=== PATIENT | female | born 2000 | race Caucasian/White ===

== ENCOUNTER 2025-04-13 10:57 | Outpatient (OUT) | payer BC, SELFPAY ==
--- OUTSIDE RECORDS SUMMARY | 2025-03-30 11:50 | XMS_ITS | Encounter Summary ---
Author Organization [facility] Address [address] [place] [address] Care Team Providers Care Multimedia Journalist Name Role Phone Maco Burch MD Primary Care Provider [phone] Reason for Visit * Reason Comments Pre-op Visit Encounter Details Date Type Department Care Team (Late st Contact Info) Description 03/30/2025 11:50 AM EDT Consult [facility] [address] [place] [address] Chas Duckworth DO [address] [place] [address] Pre-op examination; Dysmenorrhea; Pelvic pain in female Social History Tobacco Use Types Packs/Day Years Used Date Smoking Tobacco: Never Smokeless Tobacco: Never Alcohol Use Standard Drinks/Week Comments Yes 2 (1 standard drink = 0.6 oz pur e alcohol) Monthly AUDIT-C Answer Date Recorded Q1: How often do you have a drink containing alc ohol? Never 11/21/2024 Q2: How many drinks containi ng alcohol do you have on a typical day when you are drinking? 1 or 2 11/21/2024 Q3: How often do you have six or more drinks on one occasion? Never 11/21/2024 PHQ-2 Answer Date Recorded Patient Health Questionnaire-2 Score 0 11/21/2024 Comments No Sex and Gender Information Value Date Recorded Sex Assigned at Not on file Legal Sex Female 7:24 PM EDT Gender Identity Not on file Sexual Orientation Not on file documented as of this encounter Last Filed Vital Signs Vital Sign Reading Time Taken Comments Blood Pressure 100/66 03/30/2025 11:56 AM EDT Pulse - - Temperature - - Respiratory Rate - - Oxygen Saturation - - Inhaled Oxygen Concentration - - Weight 72.3 kg (159 lb 8 oz) 03/30/2025 11:56 AM EDT Height - - Body Mass Index 32.22 12/04/2022 12:00 PM EST documented in this encounter Progress Notes * Fide Marcos, STAFF RADIOGRAPHER - 03/30/2025 11:50 AM EDT Reason for Appointment: Patient ID: Capri Roper is a 24 y.o. female who presents for Pre-op Visit Patient presents today for Pre Op appointment. Patient is scheduled to undergo Diagnostic Laparoscopy, possible KING, possible FOE, possible BSO on 04/28/[address] Duckworth at [facility]. MEDICATIONS Current Outpatient Medications Medication Instructions naproxen (Naprosyn) 500 MG tablet Every 24 hours norethindrone-ethinyl estradiol-ferrous fumarate (Blisovi 24 Fe) 1-20 MG-MCG(24) tablet 1 tablet, Daily spironolactone (ALDACTONE) 50 mg, Oral, Daily ALLERGIES Allergies Allergen Reactions Latex Rash PROBLEMS Active Ambulatory Problems Diagnosis Date Noted No Active Ambulatory Problems Resolved Ambulatory Problems Diagnosis Date Noted No Resolved Ambulatory Problems Past Medical History: Diagnosis Date Irregular menses 5 months ago Other general symptoms and signs Toxic shock (CMS/HCC) HISTORY PAST MEDICAL HISTORY SOCIAL HISTORY Past Medical History: Diagnosis Date Irregular menses 5 months ago Other general symptoms and signs inflammation of chest and back Toxic shock (CMS/HCC) Social History Tobacco Use Smoking status: Never Smokeless tobacco: Never Vaping Use Vaping status: Never Used Substance Use Topics Alcohol use: Yes Alcohol/week: 2.0 standard drinks of alcohol Types: 2 Standard drinks or equivalent per week Comment: Monthly Drug use: Never FAMILY HISTORY Family History Problem Relation Name Age of Onset Migraines Mother Fide Heart disease Father Father's mother lavon Diabetes Father Father's mother lavon Cancer Maternal Grandmother Pat Cancer Paternal Grandfather [place] SURGICAL HISTORY Past Surgical History: Procedure Laterality Date CYSTOSCOPY REVIEW OF SYSTEMS Review of Systems: Review of Systems Constitutional: Negative. HENT: Negative. Eyes: Negative. Respiratory: Negative. Cardiovascular: Negative. Gastrointestinal: Negative. Genitourinary: Positive for pelvic pain. Musculoskeletal: Negative. Skin: Negative. Neurological: Negative. All other systems reviewed and are negative. Hematological: Negative. Endocrine: Negative. Allergic/Immunologic: Negative. OBJECTIVE Objective: Physical Exam Constitutional: Appearance: Normal appearance. She is well-developed. Cardiovascular: Rate and Rhythm: Normal rate and regular rhythm. Pulmonary: Effort: Pulmonary effort is normal. Breath sounds: Normal breath sounds. Abdominal: General: Bowel sounds are normal. There is no distension. Palpations: Abdomen is soft. Tenderness: There is no abdominal tenderness. There is no guarding or rebound. Musculoskeletal: General: No swelling. Normal range of motion. Right lower leg: No edema. Left lower leg: No edema. Neurological: Mental Status: She is alert and oriented to person, place, and time. Skin: General: Skin is warm and dry. Psychiatric: Mood and Affect: Mood normal. Behavior: Behavior normal. Vitals and nursing note reviewed. Exam conducted with a manager air present. Vitals: Estimated body mass index is 32.22 kg/m?? as calculated from the following: Height as of 12/04/22: 4' 11 . Weight as of this encounter: 159 lb 8 oz. BP: 100/66 Patient's last menstrual period was 03/15/2025 (approximate). ASSESSMENT & PLAN ICD-10-CM 1. Pre-op examination Z01.818 2. Dysmenorrhea N94.6 3. Pelvic pain in female R10.2 Pre Op: Patient is doing well but has complaints of dysmenorrhea and pelvic pain. I have discussed conservative management vs. surgical management with the patient in detail and patient desires surgical management at this time. Patient will undergo Diagnostic Laparoscopy, possible KING, possible FOE, possible BSO on 04/28/25. Surgical consents were signed, mmc was reviewed, and patient is to proceed to [facility] OR. Follow Up: Patient is to follow up between 1-2 weeks post operative to assess proper healing and recovery fromprocedure. Documented by Fide Marcos LPN on behalf of:Chely Jordan, PA-C documented in this encounter Plan of Treatment Upcoming Encounters Date Type Department Care Team (Late st Contact Info) Description 05/11/2025 8:30 AM EDT Office Visit [facility] [address] [place] [address] Chely Ortega PA [address] [place] [address] documented as of this encounter Visit Diagnoses Diagnosis Pre-op examination Dysmenorrhea Pelvic pain in female Unspecified symptom associated with female genital organs documented in this encounter Care Teams Multimedia Journalist Relationship Specialty Start Date End Date Maco Burch MD [address] [facility] [address] [place] [address] PCP - General Obstetrics and Gynecology 09/29/23 documented as of this encounter
--- OUTSIDE RECORDS SUMMARY | 2025-04-13 10:59 | XMS_ITS | Encounter Summary ---
Author Organization [facility] Address [address] [place] [address] Care Team Providers Care Audiometric Technician Name Role Phone Cris Tinoco CUBA Primary Care Provider [phone] Reason for Referral * Imaging (Routine) - Closed Specialty Diagnoses / Procedures Referred By Contac t Referred To Contact Radiology Diagnoses Perineal neuralgia, unspecified laterality Procedures US PELVIS COMPLETE Tracey Gray, SALES PROMOTER - IRON SETTER [address] [address] Phone: tel: fax: Referral ID Status Reason Start Date Expiration Date Visits Re quested Visits Authorized [id number] Closed 02/04/2023 02/04/2024 1 1 Encounter Details Date Type Department Care Team (Latest Contact Info) Description 02/04/2023 Transcribe Orders Pawan Prince Pre Access [address] [place] [address] Tracey Gray, SALES PROMOTER - IRON SETTER [address] [id number] Perineal neuralgia, unspecified laterality (Primary Dx) Social History Tobacco Use Types Packs/Day Years Used Date Smoking Tobacco: Never Smokeless Tobacco: Never Comments:dad smokes outside Alcohol Use Standard Drinks/Week Comments No 0 (1 standard drink = 0.6 oz pur e alcohol) PHQ-2 Answer Date Recorded PHQ-2 Score 6 02/23/2019 Comments No Sex and Gender Information Value Date Recorded Sex Assigned at Not on file Legal Sex Female 1:54 PM EST Gender Identity Not on file Sexual Orientation Not on file documented as of this encounter Plan of Treatment Upcoming Encounters Date Type Department Care Team (Late st Contact Info) Description 11/03/2025 10:00 AM EST Office Visit [facility] [place] [facility] Part of [address] [place] [address] Cordelia Thomas, SALES PROMOTER - IRON SETTER [address] [facility] [address] [place] [address] 1 year folow up documented as of this encounter Results * US PELVIS COMPLETE (02/10/2023 3:30 PM EDT) Anatomical Region Laterality Modality Abdomen, Pelvis, Hip Ultrasound 02/11/2023 8:38 AM EDT Impressions 02/11/2023 8:40 AM EDT Unremarkable pelvic ultrasound. Narrative 02/11/2023 8:40 AM EDT EXAMINATION: PELVIC ULTRASOUND; DOPPLER EVALUATION OF THE PELVIS 02/10/2023 TECHNIQUE: Transabdominal and transvaginal pelvic duplex ultrasound using B-mode/handley scaled imaging, Doppler spectral analysis and color flow Doppler was obtained. COMPARISON: None HISTORY: ORDERING SYSTEM PROVIDED HISTORY: Perineal neuralgia, unspecified laterality TECHNOLOGIST PROVIDED HISTORY: What reading provider will be dictating this exam?->CRC FINDINGS: Measurements: Uterus: 7.8 x 3.4 x 2.3 cm Endometrial stripe: 4 mm Right Ovary:3.5 x 1.7 x 1.4 cm Left Ovary: 3.2 x 1.6 x 1.1 cm Ultrasound Findings: Uterus: Uterus demonstrates normal myometrial echotexture. Endometrial stripe: Endometrial stripe is within normal limits. Right Ovary: Right ovary is within normal limits. There is normal arterial and venous Doppler flow. Left Ovary: Left ovary is within normal limits. There is normal arterial and venous Doppler flow. Free Fluid: No evidence of free fluid. Procedure Note Lakia Noble MD - 02/11/2023 EXAMINATION: PELVIC ULTRASOUND; DOPPLER EVALUATION OF THE PELVIS 02/10/2023 TECHNIQUE: Transabdominal and transvaginal pelvic duplex ultrasound usingB-mode/handley scaled imaging, Doppler spectral analysis and color flow Doppler wasobtained. COMPARISON: None HISTORY: ORDERING SYSTEM PROVIDED HISTORY: Perineal neuralgia, unspecifiedlaterality TECHNOLOGIST PROVIDED HISTORY: What reading provider will be dictating this exam?->CRC FINDINGS: Measurements: Uterus: 7.8 x 3.4 x 2.3 cm Endometrial stripe: 4 mm Right Ovary:3.5 x 1.7 x 1.4 cm Left Ovary: 3.2 x 1.6 x 1.1 cm Ultrasound Findings: Uterus: Uterus demonstrates normal myometrial echotexture. Endometrial stripe: Endometrial stripe is within normal limits. Right Ovary: Right ovary is within normal limits. There is normalarterial and venous Doppler flow. Left Ovary: Left ovary is within normal limits. There is normal arterialand venous Doppler flow. Free Fluid: No evidence of free fluid. IMPRESSION: Unremarkable pelvic ultrasound. us Tracey Gray SALES PROMOTER - IRON SETTER IMG US ORDERABLES Radha ingram Result documented in this encounter Visit Diagnoses Diagnosis Perineal neuralgia, unspecified laterality- Primary Perineal neuralgia, unspecified laterality documented in this encounter Care Teams Audiometric Technician Relationship Specialty Start Date End Date Cris Tinoco CNNP [address] [place] [id number] PCP - General 02/10/22 documented as of this encounter
--- OUTSIDE RECORDS SUMMARY | 2025-04-13 10:59 | XMS_ITS | Clinical Summary ---
Author Organization [facility] Address [address] [employer] [place] [address] Care Team Providers Care Hearse Driver Name Role Phone Cris Tinoco [employer] [facility] Primary Care Provider [phone] Allergies Active Allergy Reactions Criticality Noted Date Comments Latex 06/16/2022 Medications naproxen sodium (ANAPROX) 550 MG tabletIndication s:PRN Take 1 tablet by mouth 2 times daily (with meals) Indications : PRN Active spironolactone (ALDACTONE) 50 MG tablet Take 1 tablet by mouth daily 06/09/2024 Active norethindrone-et hinyl estradiol (12/12) 1-20 MG-MCG per tablet Take 1 tablet by mouth daily Active Active Problems Problem Noted Date Diagnosed Date Gross hematuria 09/03/2022 Urinary frequency 09/03/2022 Urinary urgency 09/03/2022 Frequent headaches 04/15/2019 Daily headache 01/21/2019 Concussion wth loss of consciousness of 30 minut es or less 01/21/2019 Dizziness 01/21/2019 Sleeping difficulty 01/21/2019 Behavioral change 01/21/2019 Memory difficulty 01/21/2019 Family History Medical History Relation Name Comments Heart Disease Father No Known Problems Mother Relation Name Status Comments Father Alive Mother Alive Social History Tobacco Use Types Packs/Day Years Used Date Smoking Tobacco: Never Passive Smoke Exposure: Never Smokeless Tobacco: Never Tobacco Cessation:Counseling Given: No Comments:dad smokes outside Alcohol Use Standard Drinks/Week Comments No 0 (1 standard drink = 0.6 oz pur e alcohol) PHQ-2 Answer Date Recorded PHQ-2 Score 6 02/23/2019 Comments No Sex and Gender Information Value Date Recorded Sex Assigned at Not on file Legal Sex Female 1:54 PM EST Gender Identity Not on file Sexual Orientation Not on file Last Filed Vital Signs Vital Sign Reading Time Taken Comments Blood Pressure 110/60 11/03/2024 9:19 AM EST Pulse 94 03/03/2023 1:35 PM EDT Temperature 36.7 C (98 F) 11/03/2024 9:19 AM EST Respiratory Rate 18 06/16/2022 2:56 PM EDT Oxygen Saturation 100% 01/14/2019 1:26 PM EST Inhaled Oxygen Concentration - - Weight 65.8 kg (145 lb) 11/03/2024 9:19 AM EST Height 154.9 cm (5' 0.98 ) 11/03/2024 9:19 AM ES T Body Mass Index 27.42 11/03/2024 9:19 AM EST Plan of Treatment Upcoming Encounters Date Type Department Care Team (Late st Contact Info) Description 11/03/2025 10:00 AM EST Office Visit [facility] Part of [address] [place] [address] Cordelia Thomas, GENERAL OFFICE WORKER - ROUSTABOUT CREW PUSHER [address] [place] [address] [address] [place] [address] 1 year folow up Health Maintenance Due Date Last Done Comments Depression Screen 2014 HIV screen 2017 HPV vaccine (3 - 3-dose series) 03/06/2018 12/12/2017, 12/12/2017, 06/05/2017, Additional history exists Hepatitis C screen 2020 Pap smear 2023 Chlamydia/GC screen 08/20/2023 08/20/2022 DTaP/Tdap/Td vaccine (7 - Td or Tdap) 04/06/2024 04/06/2014, 03/18/2007, 03/18/2007, Additional history exists COVID-19 Vaccine ( - season) 2024 08/06/2021, 07/09/2021 Flu vaccine (Season Ended) 06/23/202509/28, 01/14/2008, 09/29/2007 Pneumococcal 0-49 years Vaccine Aged Out 2002 No longer eligible based on patient's age to complete this topic Hepatitis B vaccine Completed 2002, 2002, 2002 Hib vaccine Completed 06/28/2003, 04/2003, 2002, Additional history exists Measles,Mumps,Rubella (MMR) vaccine Discontinued 03/18/2007, 06/28/2003 Polio vaccine Completed 03/18/2007, 03/2003, 2002, Additional history exists Varicella vaccine Completed 03/18/2007, , 06/28/2003 Hepatitis A vaccine Completed 09/29/2007, 7 Meningococcal (ACWY) vaccine Completed 05/09/2019, 04/06/2014, 04/06/2014 Meningococcal B vaccine Completed 06/06/2019, 05/09 Procedures Procedure Name Priority Date/Time Associated Diagnosis Comments CHLAMYDIA, GONORRHEA, TRICHOMONIASIS Routine 08/20/2022 from Last 3 Months or Most Recently Relevant to Health Maintenance Results * Chlamydia, Gonorrhea, Trichomoniasis (08/20/2022) Historical Provider MICROBIOLOGY - GENERAL OR DERABLES Final Result from Last 3 Months or Most Recently Relevant to Health Maintenance Insurance [employer] Care Teams Hearse Driver Relationship Specialty Start Date End Date Cris Tinoco CNNP [address] [facility] [address] [place] [address] PCP - General 02/10/22
--- OUTSIDE RECORDS SUMMARY | 2025-04-13 10:59 | XMS_ITS | Clinical Summary ---
Author Organization [facility] Address [address] [place] [address] Care Team Providers Care Planning Coordinator Name Role Phone Maco Burch MD Primary Care Provider [phone] Allergies Active Allergy Reactions Criticality Noted Date Comments Latex Rash Low 09/28/2023 Medications naproxen (Naprosyn) 500 MG tablet 1 (one) time each day at the same time. Active spironolactone (Aldactone) 50 MG tablet Take 50 mg by mouth Daily Active norethindrone-ethi nyl estradiol-ferrous fumarate (Blisovi 24 Fe) 1-20 MG-MCG(24) tablet Take 1 tablet by mouth Daily Active norethindrone-ethi nyl estradiol (Loestrin Fe 12/12) 1-20 MG-MCG tabletIndications: Menorrhagia with regular cycle,Dysmenorrhea ,Oral contraceptive use Take 1 tablet by mouth Daily 83 tablet 3 4 03/22/20 25 Discontinu ed(Other) Encounters Date Type Department Care Team Description 03/30/2025 11:50 AM EDT Consult [facility] OB [address] [place] [id number] Chas Duckworth DO Pre-op examination; Dysmenorrhea; Pelvic pain in female 03/22/2025 1:10 PM EDT Office Visit [facility] OB [address] [place] [address] Chas Duckworth DO control counseling; Dysmenorrhea 03/22/2025 Bamboo flowsheet [facility] [place] [address] Chas Duckworth DO 03/19/2025 Travel from Last 3 Months Family History Medical History Relation Name Comments Diabetes Father Father's mother lavon Heart disease Father Father's mother lavon Cancer Maternal Grandmother Pat Migraines Mother Fide Cancer Paternal Grandfather [place] Relation Name Status Comments Father Father's mother lavon Alive Maternal Grandmother Pat Mother Fide Alive Paternal Grandfather [place] Social History Tobacco Use Types Packs/Day Years Used Date Smoking Tobacco: Never Smokeless Tobacco: Never Tobacco Cessation:Counseling Given: Not Answered Alcohol Use Standard Drinks/Week Comments Yes 2 [...] 8 oz) 03/30/2025 11:56 AM EDT Height 149.9 cm (4' 11 ) 12/04/2022 12:00 PM EST Body Mass Index 32.22 12/04/2022 12:00 PM EST Plan of Treatment Upcoming Encounters Date Type Department Care Team (Late st Contact Info) Description 05/11/2025 8:30 AM EDT [facility] Visit [facility] [place] [address] Chely Ortega PA [address] [facility] [place] [address] Health Maintenance Due Date Last Done Comments Influenza Vaccine (Season Ended) 2025 01/14/20 08, 09/29/2007 Insurance BCBS Care Teams Planning Coordinator Relationship Specialty Start Date End Date Maco Burch MD [address] [facility] [place] [address] PCP - General Obstetrics and Gynecology 09/29/23
== END 2025-04-13 10:58 | disposition home or self-care (01) ==
LOC: PST 10:57
PROVIDERS: PCP Nurse Practitioner Family; Visit Provider Obstetrics & Gynecology
DX: Z01.818 Encounter for other preprocedural examination (principal); N94.6 Dysmenorrhea, unspecified; R10.2 Pelvic and perineal pain

== ENCOUNTER 2025-04-28 09:13 | Day surgery (SDC) | payer BC, SELFPAY ==
[2025-04-13 11:30] VITALS: BP 112/70; PULSE 69; TEMP 36.4; O2SAT 97; BMI 29.5
[2025-04-28] VITALS (17 sets, daily range): BP systolic 84–120; BP diastolic 50–76; PULSE 70–90; TEMP 36.2–36.7; O2SAT 96–99; BMI 29.8
[2025-04-28 09:21] LABS: Basophils Percent Auto 0.7 % (0.2-2.0); Eosinophils Absolute Auto 0.1 10^3/uL (0.0-0.7); Eosinophils Percent Auto 1.6 % (0.9-7.0); Hematocrit 40.4 % (36.0-48.0); Hemoglobin 14.1 g/dL (12.0-16.0); Immature Granulocytes Abs Auto 0.02 10^3/uL (0.00-0.03); Immature Granulocytes Pct Auto 0.5 % (0.0-0.5); Lymphocytes Absolute Auto 1.9 10^3/uL (1.2-3.8); Lymphocytes Percent Auto 43.2 % (20.5-60.0); Mean Corpuscular HGB Conc 34.9 g/dL (29.9-35.2); Mean Corpuscular Hemoglobin 30.7 pg (26.7-34.0); Mean Platelet Volume 8.8 fL (9.5-13.5); Monocytes Absolute Auto 0.4 10^3/uL (0.3-0.8); Monocytes Percent Auto 9.5 % (1.7-12.0); Neutrophils Percent Auto 44.5 % (43.0-75.0); Platelet Count 281 10^3/uL (150-450); Red Blood Count 4.59 10^6/uL (4.20-5.40); Red Cell Distribution Width 11.6 % (11.0-15.0); White Blood Count 4.4 10^3/uL (4.0-11.0)
[2025-04-28 09:50] LABS: HCG Quantitative <1 mIU/mL
[2025-04-28] MEDS: LACTATED RINGER'S SOLUTION 1,000 ML 50 ML IV ×2 (09:53→12:23)
[2025-04-28] MEDS: HYDROMORPHONE HCL 0.5 MG/0.5 ML SYRINGE IV ×2 (11:54→12:12)
--- NOTE | 2025-04-28 11:59 | P.ON_ITS ---
Brief Operative Note Date of procedure: 04/28/25 Pre-op diagnosis general: pelvic pain Post-op diagnosis: same as pre-op Procedure: NAME OF PROCEDURE: [diagnostic laparoscopy ] PROCEDURE: The patient was taken back to the Operating Room where she was placed in dorsal lithotomy position after given general anesthesia. The patient was prepped and draped in normal sterile fashion. A sponge stick was placed into the patient's vagina. Attention was turned to the patient's abdomen, where a small umbilical incision was made. The fascia was tented using Barry clamps and the fascia was entered sharply. Confirmation of intraabdominal placement of the 10 mm port was confirmed under direct visualization using a laparoscope. The patient's abdomen was then insufflated using CO2 gas with approximately 4 liters. A second port was placed left laterally, this was done under direct visualization with a 5 mm port. Survey of the patient's abdomen demonstrated normal liver and gallbladder. Survey of the patient's pelvic anatomy demonstrated normal appearing rt and lt ovary and tubes as well as normal appearing uterus. No endometrial implants could be noted, no evidence of any pelvic disease was seen, normal appearing pelvic cavity. All instruments were removed from the patient's abdomen. The patient's abdomen was deinsufflated of CO2 gas. The patient tolerated the procedure well. Sponge stick was removed from the patient's vagina. The patient's infraumbilical fascia was closed using #0 Vicryl on a GI needle. The patient's skin was closed laterally and infraumbilically using 4-0 Vicryl. The patient tolerated the procedure well. Sponge, lap and needle counts were correct x 2. The patient was taken to Recovery Room in stable condition. Anesthesia: LEONIE Surgeon: Chas Duckworth Gusset Stitcher: Celia Salvador Estimated blood loss (mL): 5 Pathology: none sent Condition: stable Disposition: PACU Urinary Catheter Management Urinary Catheter Management Urethral: Cath placed during this visit: no
== END 2025-04-28 13:40 | disposition home or self-care (01) ==
LOC: SURGOUT 09:14
PROVIDERS: PCP Nurse Practitioner Family; Visit Provider Obstetrics & Gynecology
PROC: (CPT 840; principal; 2025-04-28 10:25)
DX: R10.2 Pelvic and perineal pain (principal); N94.6 Dysmenorrhea, unspecified; K21.9 Gastro-esophageal reflux disease without esophagitis
CPT/HCPCS: 49320; 36415; 84702; 85025; J1100; J1171; J1885; J2250; J2405; J2704; J3010